=== PATIENT | male | born 1950 | race Caucasian/White ===

== ENCOUNTER 2017-10-10 19:33 | Emergency (ER) | payer BC, MEDICARE ==
[~2017-10-10] VITALS: Ht 175.3 cm; Wt 84.1 kg
[~2017-10-10 19:33] MED LIST: DIOVAN 40MG40 MG; DOXYCYCLINE 10100 MG PO; NORCO 325 MG-51 TAB PO; VYTORIN 10 MG-21 TAB PO; ZOCOR 40MG40 MG PO
[2017-10-10 19:42] VITALS: TEMP 98.2
[2017-10-10 22:28] VITALS: BP 174/94; PULSE 73
[2017-10-10] MEDS ORDERED: NORCO 325 MG-51 TAB PO (22:30)
== END 2017-10-10 22:57 | disposition home or self-care (01) ==
LOC: COL.ER 19:33
DX: S76.312A Strain of muscle, fascia and tendon of the posterior muscle group at thigh level, left thigh, initial encounter (principal); X50.0XXA Overexertion from strenuous movement or load, initial encounter; Y92.39 Other specified sports and athletic area as the place of occurrence of the external cause; Y93.54 Activity, bowling
CPT/HCPCS: J1885; L1846

== ENCOUNTER 2019-11-12 06:10 | Day surgery (SDC) | payer BC ==
[~2019-11-12] VITALS: Ht 175.3 cm; Wt 76.3 kg
[2019-11-12] VITALS (423 sets, daily range): BP systolic 112–159; BP diastolic 72–103; PULSE 71–88; TEMP 97.2–98.4; O2SAT 93–99
[2019-11-12 07:09] LABS: PROTHROMBIN TIME 11.2 SECONDS (9.7-12.8)
[2019-11-12 07:10] LABS: HEMATOCRIT 40.3 % (42.0-52.0); HEMOGLOBIN 13.7 g/dl (13.5-18.0); MEAN CELL VOLUME 89 fl (80.0-100.0); MEAN CORPUSCULAR HEMOGLOBIN 30 pg (27.0-31.0); MEAN CORPUSCULAR HGB CONC 34 g/dl (33.0-37.0); MEAN PLATELET VOLUME 9.2 fl (7.4-10.4); PLATELET COUNT 188 K/mm3 (130-400); RED BLOOD COUNT 4.53 M/mm3 (4.20-5.60); REDCELL DISTRIBUTION WIDTH-CV 12.7 % (11.5-14.5)
[2019-11-12 07:12] LABS: CALCIUM 9.4 mg/dL (8.4-10.2); CREATININE, serum 1.01 (0.66-1.25); PARTIAL THROMBOPLASTIN TIME 33.7 SECONDS (26.0-37.0); POTASSIUM 4.2 mmol/L (3.4-5.0)
[2019-11-12] MEDS ORDERED: BRILINTA90 MG PO (07:23)
[2019-11-12] MEDS ORDERED: TOPROL XL 50MG50 MG PO (07:24)
[2019-11-12] MEDS ORDERED: ASPIRIN 81M81 MG/TA2 PO (07:25)
[2019-11-12] MEDS ORDERED: ADVIL200 MG PO (07:25)
[2019-11-12] MEDS ORDERED: ZESTRIL 20MG TA20 MG PO (07:26)
--- NOTE | 2019-11-12 07:45 | NUR ---
Pt to procedure,report to Santiago Carmona.
--- NOTE | 2019-11-12 07:49 | NUR ---
SEE MERGE DOCUMENTATION FOR MEDICATION ADMINISTRATION TIMES AND INTRA/POST PROCEDURE SEDATION ASSESSMENTS. RIGHT HAND BARBEAU TEST POSITIVE.
--- NOTE | 2019-11-12 08:24 | NUR ---
Report received from citlalli Cespedes will transfer to ICU.
--- NOTE | 2019-11-12 09:05 | NUR ---
Patient arrives to ICU room 6 and is attached to monitor. Right radial site with scant drainage from SC lidocaine application by MD. Arterial site CDI and without hemotoma. Patient denies chest pain, pressure, or tightness. Assessment and VS as documented. Care assumed.
--- NOTE | 2019-11-12 13:39 | NUR ---
ALEX met with the patient to discuss discharge plan. The patient lives in [place] with his , Katlin (ph#[phone]). He reports independence with ADLs and does not have any DME. The patient's PCP is Dr. Gibran Schreiber and he receives his medications at [facility]. He reports no difficulties obtaining his meds. The patient does not have advanced directives in EMR, but he reports that he does have them completed and at his home in [place]. He states that his is his DPOA-HC. The patient reports that he does have Medicare Part A and provided SW with a copy of the card. ALEX notified Ar with R1 of his Medicare number. The patient plans to return home with his upon discharge. No additional needs at this time.
--- NOTE | 2019-11-12 14:43 | NUR ---
Right radial site with active bleeding noted. No hemotoma present. Manual pressure applied x10 minutes and TR band reinflated to 6mls. Will continue to monitor.
--- NOTE | 2019-11-12 20:00 | NUR ---
3 CC'S OF AIR REMOVED FROM TR BAND. NO BLEEDING OR HEMATOMA NOTED. WILL CONTINUE TO MONITOR.
--- NOTE | 2019-11-12 22:07 | NUR ---
Report given to JOSH Casarez.
[2019-11-13] VITALS (373 sets, daily range): BP systolic 126–147; BP diastolic 83; PULSE 71–88; TEMP 97.7–98.3; O2SAT 82–99
--- NOTE | 2019-11-13 07:00 | NUR ---
Bedside shift report received from JOSH Casarez. Pt in bed resting, hoping to get out of here shortly, will continue to juan miguel.
[2019-11-13 07:27] LABS: CREATININE, serum 0.81 (0.66-1.25); POTASSIUM 4.2 mmol/L (3.4-5.0)
[2019-11-13 07:30] LABS: BASO % 0.5 % (0.0-2.0); EOS # 0.1 (0.0-0.7); EOS % 2.1 % (0-4.0); GRAN # 3.5 (1.4-6.5); GRAN % 61.2 % (42.2-75.2); HEMATOCRIT 39.6 % (42.0-52.0); HEMOGLOBIN 13.4 g/dl (13.5-18.0); LYMPH # 1.6 (1.2-3.4); LYMPH % 28.5 % (20.0-51.0); MEAN CELL VOLUME 89 fl (80.0-100.0); MEAN CORPUSCULAR HEMOGLOBIN 30 pg (27.0-31.0); MEAN CORPUSCULAR HGB CONC 34 g/dl (33.0-37.0); MEAN PLATELET VOLUME 9.3 fl (7.4-10.4); MONO # 0.4 (0.1-0.6); MONO % 7.5 % (1.7-9.3); PLATELET COUNT 199 K/mm3 (130-400); RED BLOOD COUNT 4.43 M/mm3 (4.20-5.60); REDCELL DISTRIBUTION WIDTH-CV 12.8 % (11.5-14.5)
--- NOTE | 2019-11-13 09:56 | NUR ---
Assessment charted. PT in bed resting. Dr. Gagnon to see pt at this time, orders received for discharge. Pt feels well, anticiatping discharge shortly. Denies pain. VSS. R radial site has some brusiing but no new bleeding. Resting in bed and up ad be to bathroom. Will cotnineu to monitor until discharge.
--- NOTE | 2019-11-13 11:00 | NUR ---
Discharge teaching completed at this time. Discharge packet reveiwed, pt knows to call and schedule follow up appointment. Reviewed new meds, answered all questions. INT dc'd, tip intact. Restrictions regarding RUE reviewed. Escorted pt out to ER entrance where was waiting to drive pt home, pt has all belongings, criteria met.
== END 2019-11-13 11:05 | disposition home or self-care (01) ==
LOC: ICU 06:10 → COL.CAR 06:10 → ICU 09:04 → COL.CAR 11:30 → ICU 22:08 → COL.CAR 22:08 → IMCU 11-13 02:03 → COL.CAR 11-13 11:05
PROVIDERS: Internal Medicine Interventional Cardiology
DX: I25.119 Atherosclerotic heart disease of native coronary artery with unspecified angina pectoris (principal); R94.39 Abnormal result of other cardiovascular function study; I10 Essential (primary) hypertension; E78.5 Hyperlipidemia, unspecified; Z83.3 Family history of diabetes mellitus
CPT/HCPCS: OP; C1725; C1769; C1874; C1887; C9600; J0583; J1644; J2250; J3010; Q9967